=== PATIENT | female | born 1985 | race African-American/Black ===

== ENCOUNTER 2017-08-20 17:08 | Emergency (ER) | payer MEDICAID ==
[~2017-08-20] VITALS: Ht 170.2 cm; Wt 67.1 kg
[2017-08-20 17:51] VITALS: BP 114/70
== END 2017-08-21 02:43 | disposition home or self-care (01) ==
LOC: ER 17:22
DX: O36.4XX0 Maternal care for intrauterine death, not applicable or unspecified (principal); O20.8 Other hemorrhage in early pregnancy; Z3A.01 Less than 8 weeks gestation of pregnancy
CPT/HCPCS: 36415; 76801; 76817; 84702